=== PATIENT | male | born 1965 | race Caucasian/White ===

== ENCOUNTER 2016-11-12 11:06 | Inpatient (IN) | payer OTHER ==
[2016-11-12 12:20] VITALS: BMI 21.5
--- NOTE | 2016-11-12 15:02 | HP ---
COWS - Scale Resting Pulse: 0= [place] 80 or Below Sweatin=Flushed/Facial Moisture Restless Observation: 3= Extraneous Movement Pupil Size: 2= Moderately Dilated Bone or Joint Aches: 2= Severe Diffuse Aches Runny Nose/ Eye Tearin= Runny Nose/Eyes GI Upset > 30mins: 3= Vomiting/Diarrhea Tremor Observation: 2= Slight Tremor Visible Yawning Observation: 2= >3x During Session Anxiety or Irritability: 2=Irritable/Anxious Goose Flesh Skin: 0=Smooth Skin COWS Score: 20 Admission ROS S - HPI Chief Complaint: I NEED HELP TO STOP USING HEROIN Allergies/Adverse Reactions: Allergies Allergy/AdvReac Type Severity Reaction Status Date / Time No Known Allergies Allergy Verified 11/12/16 14:11 History of Present Illness: THIS 51 YEARS OLD MALE WITH HEROIN DEPENDENCE,WITHDRAWAL SYMPTOM,LAST DETOX IN 04/24 [place] STONE SYNCOPE NICOTINE DEPENDENCE DEPRESSION,ANXIETY,INSOMNIA LONGEST PERIOD OF SOBRIETY 9 AND HALF YEARS Exam Limitations: No Limitations - Ebola screening Have you traveled outside of the country in the last 21 days: No Have you been sick,other than usual withdrawal symptoms: No - Review of Systems Constitutional: Chills, Diaphoresis, Loss of Appetite, Malaise, Night Sweats, Changes in sleep, Weakness, Unintentional Wgt. Loss EENT: reports: Tearing, Nose Congestion Respiratory: reports: No Symptoms reported Cardiac: reports: Palpitations GI: reports: Diarrhea, Nausea, Poor Appetite, Vomiting, Abdominal cramping : reports: No Symptoms Reported Musculoskeletal: reports: Back Pain, Joint Pain, Muscle Pain, Joint Stiffness Integumentary: reports: Dryness Neuro: reports: Headache, Tremors Endocrine: reports: No Symptoms Reported Hematology: reports: No Symptoms Reported Psychiatric: reports: Mood/Affect Appropiate, Orientated x3, Anxious, Depressed Patient History - Patient Medical History Hx Anemia: No Hx Asthma: No Hx Chronic Obstructive Pulmonary Disease (COPD): No Hx Cancer: No Hx Cardiac Disorders: No Hx Hypertension: No Hx Hypercholesterolemia: No Hx Pacemaker: No HX Cerebrovascular Accident: No Hx Seizures: No Hx Diabetes: No Hx Gastrointestinal Disorders: No Hx Liver Disease: No Hx Genitourinary Disorders: No Hx Sexually Transmitted Disorders: No Hx Renal Disease (ESRD): No Hx Thyroid Disease: No Hx Human Immunodeficiency Virus (HIV): No (LAST 04/24 NEGATIVE) Hx Hepatitis C: No Hx Depression: Yes (ANXIETY) Hx Suicide Attempt: No Hx Bipolar Disorder: No Hx Schizophrenia: No Other Medical History: NO SUICIDAL,NO HOMICIDAL - Patient Surgical History Past Surgical History: No Hx Neurologic Surgery: No Hx Cataract Extraction: No Hx Cardiac Surgery: No Hx Lung Surgery: No Hx Breast Surgery: No Hx Breast Biopsy: No Hx Abdominal Surgery: No Hx Appendectomy: No Hx Cholecystectomy: No Hx Genitourinary Surgery: No Hx Section: No Hx Orthopedic Surgery: No Anesthesia Reaction: No - PPD History Previous Implant?: Yes Documented Results: Negative w/o proof Implanted On Prior R Admission?: No PPD to be Administered?: Yes - Smoking Cessation Smoking history: Current every day smoker Have you smoked in the past 12 months: Yes Aproximately how many cigarettes per day: 2 Hx Chewing Tobacco Use: No Initiated information on smoking cessation: Yes 'Breaking Loose' booklet given: 11/12/16 - Substance & Tx. History Hx Alcohol Use: No Hx Substance Use: Yes Substance Use Type: Heroin Hx Substance Use Treatment: Yes ([facility] HUI 05/24) - Substances Abused Heroin Route: Injection Frequency: Daily Amount used: 2-3 bags Age of first use: 28 Date of Last Use: 11/12/16 Family Disease History - Family Disease History Family History: Denies Admission Physical Exam S - Vital Signs Vital Signs: Vital Signs - 24 hr 11/12/16 12:17 Temperature 97 F L Pulse Rate 56 L Respiratory 20 Rate Blood Pressure 104/62 - Physical General Appearance: Yes: Moderate Distress, Tremorous, Irritable, Sweating, Anxious HEENTM: Yes: Normal ENT Inspection, RICARDO, Pharynx Normal Respiratory: Yes: Lungs Clear Neck: Yes: Supple, Trachea in good position Breast: Yes: Breast Exam Deferred Cardiology: Yes: Within Normal Limits, Regular Rhythm, Regular Rate, S1, S2 Abdominal: Yes: Within Normal Limits, Normal Bowel Sounds, Non Tender, Flat, Soft Genitourinary: Yes: Within Normal Limits Back: Yes: Within Normal Limits, Normal Inspection, Muscle Spasm Musculoskeletal: Yes: full range of Motion, Back pain, Joint Stiffness, Muscle Pain Extremities: Yes: Normal Inspection, Normal Range of Motion, Tremors Neurological: Yes: custom clothier II-XII NML intact, Fully Oriented, Alert, Motor Strength 5/5 Integumentary: Yes: Dry, Track Reddy Lymphatic: Yes: Within Normal Limits - Diagnostic (1) Opioid dependence with withdrawal Current Visit: Yes Status: Acute (2) Anxiety and depression Current Visit: Yes Status: Acute (3) Insomnia Current Visit: Yes Status: Acute (4) Nicotine dependence Current Visit: Yes Status: Acute (5) Weight loss Current Visit: Yes Status: Acute Cleared for Admission S - Detox or Rehab [facility] Level of Care: Medically Managed Detox Regimen/Protocol: Methadone S Breath Alcohol Content Breath Alcohol Content: 0 Urine Drug Screen - Results Drug Screen Negative: No Urine Drug Screen Results: OPI-Opiates
[2016-11-12] MEDS ORDERED: ACETAMINOPHEN 325 MG TABLET (FP) PO PRN (15:10)
[2016-11-12] MEDS ORDERED: guaiFENesin/D-METHORPHAN HB 10 ML UNIT-DOSE CUPS PO PRN (15:10)
[2016-11-12] MEDS ORDERED: MAG HYDROX/AL HYDROX/SIMETH 30 ML UNIT-DOSE CUP PO PRN (15:10)
[2016-11-12] MEDS ORDERED: MAGNESIUM HYDROX 2400MG/30ML ORAL SUSPENSION 30 ML CUP PO PRN (15:10)
[2016-11-12] MEDS ORDERED: P-EPHED 60MG/TRIPROLIDI 2.5MG TABLET PO PRN (15:10)
[2016-11-12] MEDS ORDERED: IBUPROFEN 400 MG TABLET (FP) PO PRN (15:10)
[2016-11-12] MEDS ORDERED: LOPERAMIDE HCL 2 MG CAPSULE PO PRN (15:10)
[2016-11-12] MEDS ORDERED: MENTHOL/PHENOL 1 EACH UD MM PRN (15:10)
[2016-11-12] MEDS ORDERED: MAGNESIUM CITRATE 300 ML BOTTLE PO PRN (15:10)
[2016-11-12] MEDS ORDERED: hydrOXYzine PAMOATE 50 MG CAPSULE (FP) PO PRN (15:10)
[2016-11-12] MEDS ORDERED: METHADONE HCL 10 MG TABLET (FOR DETOX USE ONLY) PO ONE ×2 (15:44→23:00)
[2016-11-12] MEDS: diazePAM 5 MG TABLET PO PRN ×2 (15:53→22:31)
[2016-11-12 21:32] LABS: URINE APPEARANCE CLEAR; URINE BILIRUBIN NEGATIVE (NEGATIVE); URINE BLOOD NEGATIVE (NEGATIVE); URINE COLOR YELLOW; URINE GLUCOSE (UA) NEGATIVE (NEGATIVE); URINE KETONE NEGATIVE (NEGATIVE); URINE LEUK ESTERASE NEGATIVE (NEGATIVE); URINE NITRITE NEGATIVE (NEGATIVE); URINE PROTEIN NEGATIVE (NEGATIVE); URINE UROBILINOGEN NEGATIVE E.U./dl (0.2-1.0)
[2016-11-12] MEDS: THIAMINE HCL 100 MG TABLET (FP) PO SCH (22:31)
[2016-11-12] MEDS: diphenhydrAMINE HCL 50 MG CAPSULE PO PRN (22:31)
[2016-11-12] MEDS: cloNIDine HCL 0.1 MG TABLET PO SCH (22:32)
--- NOTE | 2016-11-13 09:09 | CONSULT ---
[facility] Psychiatric Consult - Data Date of interview: 11/13/16 Admission source: [facility] Identifying data: Readmission to [facility] for this 51 y/o male seeking detox treatment for heroin dependence.Patient is single,a father of one, domiciled (transitional housing program),unemployed and supported on Public Assistance. Substance Abuse History: - Smoking Cessation. Smoking history: Current every day smoker. Have you smoked in the past 12 months: Yes. Aproximately how many cigarettes per day: 2. Hx Chewing Tobacco Use: No. Initiated information on smoking cessation: Yes. 'Breaking Loose' booklet given: 11/12/16. - Substance & Tx. History. Hx Alcohol Use: No. Hx Substance Use: Yes. Substance Use Type : Heroin. Hx Substance Use Treatment: Yes (LASHONDA HUI 05/24). - Substances Abused. Heroin. Route: Injection. Frequency: Daily. Amount used: 2-3 bags. Age of first use: 28. Date of Last Use: 11/12/16. Confirmed by patient. Medical History: Patient currently endorses good general health. Psychiatric History: Patient denies history of psychiatric hospitalizations.No history of psychiatric treatment despite a reported history of suicide attempt ( 2017) via overdose with fentanyl. Physical/Sexual Abuse/Trauma History: Patient denies. Additional Comment: Urine Drug Screen Results: OPI-Opiates.Noted. Mental Status Exam - Mental Status Exam Alert and Oriented to: Time, Place, Person Cognitive Function: Good Patient Appearance: Well Groomed Mood: Hopeful, Euthymic Affect: Appropriate, Normal Range Patient Behavior: Fatigued, Appropriate, Cooperative Speech Pattern: Clear Voice Loudness: Normal Thought Process: Goal Oriented Thought Disorder: Not Present Hallucinations: Denies Suicidal Ideation: Denies Homicidal Ideation: Denies Insight/Judgement: Poor Sleep: Poorly, Difficulty falling asleep Appetite: Good Muscle strength/Tone: Normal Gait/Station: Normal Psychiatric Findings - Problem List ([place] 1, 2,3) (1) Nicotine dependence Current Visit: Yes Status: Acute (2) Opioid dependence with withdrawal Current Visit: Yes Status: Acute (3) Substance induced mood disorder Current Visit: Yes Status: Acute - Initial Treatment Plan Initial Treatment Plan: Psychoeducation.Detoxification.Ambien 10 mg po hs prn.Patient made aware of risk for parasomnias.He agrees with this careplan.Observation.
--- NOTE | 2016-11-13 09:20 | EKG ---
Test Reason : Blood Pressure : / mmHG Vent. Rate : 047 BPM Atrial Rate : 047 BPM P-R Int : 132 ms QRS Dur : 092 ms QT Int : 438 ms P-R-T Axes : 073 077 058 degrees QTc Int : 387 ms SINUS BRADYCARDIA POSSIBLE LEFT ATRIAL ENLARGEMENT VOLTAGE CRITERIA FOR LEFT VENTRICULAR HYPERTROPHY peaked T waves are noted V3, V4, V5 CLINICAL CORRELATION IS RECOMMENDED NO PREVIOUS ECGS AVAILABLE Confirmed by SAMANTHA AVILA MD ([id number]) on 11/13/2016 9:20:37 AM Referred By: Confirmed By:SAMANTHA AVILA MD
[2016-11-13] MEDS ORDERED: METHADONE HCL 10 MG TABLET (FOR DETOX USE ONLY) PO ONE (10:00)
[2016-11-13 10:02] LABS: MCH 30.3 pg (25.7-33.7); MCHC 34.1 g/dl (32.0-35.9); MEAN CELL VOLUME 88.9 fl (80-96); MEAN PLT VOLUME 11.5 fl (7.5-11.1); PLATELET COUNT 135 K/MM3 (134-434); RDW 13.7 % (11.9-15.9); WHITE BLOOD COUNT 5.3 K/mm3 (4.0-10.0)
[2016-11-13 10:24] LABS: ALBUMIN 4.4 g/dl (3.4-5.0); ALK PHOS 73 U/L (45-117); ANION GAP 5 (8-16); BILIRUBIN,TOTAL 0.9 mg/dL (0.2-1.0); CALCIUM 9.4 mg/dL (8.5-10.1); CO2 37 mmol/L (21-32); COCKROFT - GAULT 75.59; CREATININE 1.1 mg/dL (0.7-1.3); GLUCOSE,RANDOM 102 mg/dL (74-106); SGOT/AST 16 U/L (15-37); SGPT/ALT 18 U/L (12-78); TOT PROT 7.4 g/dl (6.4-8.2)
[2016-11-13] MEDS: PRENATAL VITAMINS W/ FOLIC ACID TABLET (FP) PO SCH (10:31)
[2016-11-13] MEDS: cloNIDine HCL 0.1 MG TABLET PO SCH (10:31)
[2016-11-13] MEDS: diazePAM 5 MG TABLET PO PRN ×2 (10:32→22:10)
[2016-11-13] MEDS: CYCLOBENZAPRINE HCL 10 MG TABLET (FP) PO PRN ×2 (10:32→22:10)
--- NOTE | 2016-11-13 11:08 | PN ---
BHS COWS - Scale Resting Pulse: 0= [place] 80 or Below Sweatin= Chills/Flushing Restless Observation: 3= Extraneous Movement Pupil Size: 2= Moderately Dilated Bone or Joint Aches: 4=Acute Joint/Muscle Pain Runny Nose/ Eye Tearin= Nasal Congestion GI Upset > 30mins: 1= Stomach Cramp Tremor Observation of Outstretched Hands: 1= Tremor [place], Not Seen Yawning Observation: 2= >3x During Session Anxiety or Irritability: 2=Irritable/Anxious Goose Flesh Skin: 0=Smooth Skin COWS Score: 17 BHS Progress Note (SOAP) Subjective: ANXIETY,IRRITABILITY,SWEATS. Objective: 11/13/16 11:07 Vital Signs Temperature 97.7 F 11/13/16 10:40 Pulse Rate 68 11/13/16 10:40 Respiratory Rate 18 11/13/16 10:40 Blood Pressure 94/61 11/13/16 10:40 O2 Sat by Pulse Oximetry (%) Laboratory Last Values WBC 5.3 K/mm3 (4.0-10.0) 11/13/16 06:00 RBC 4.68 M/mm3 (4.00-5.60) 11/13/16 06:00 Hgb 14.2 GM/dL (11.7-16.9) 11/13/16 06:00 Hct 41.7 % (35.4-49) 11/13/16 06:00 MCV 88.9 fl (80-96) 11/13/16 06:00 MCHC 34.1 g/dl (32.0-35.9) 11/13/16 06:00 RDW 13.7 % (11.9-15.9) 11/13/16 06:00 Plt Count 135 K/MM3 (134-434) 11/13/16 06:00 MPV 11.5 fl (7.5-11.1) H 11/13/16 06:00 Sodium 138 mmol/L (136-145) 11/13/16 06:00 Potassium 4.8 mmol/L (3.5-5.1) 11/13/16 06:00 Chloride 96 mmol/L (98-107) L 11/13/16 06:00 Carbon Dioxide 37 mmol/L (21-32) H 11/13/16 06:00 Anion Gap 5 (8-16) L 11/13/16 06:00 BUN 16 mg/dL (7-18) 11/13/16 06:00 Creatinine 1.1 mg/dL (0.7-1.3) 11/13/16 06:00 Creat Clearance w eGFR > 60 (>60) 11/13/16 06:00 Random Glucose 102 mg/dL (74-106) 11/13/16 06:00 Calcium 9.4 mg/dL (8.5-10.1) 11/13/16 06:00 Total Bilirubin 0.9 mg/dL (0.2-1.0) 11/13/16 06:00 AST 16 U/L (15-37) 11/13/16 06:00 ALT 18 U/L (12-78) 11/13/16 06:00 Alkaline Phosphatase 73 U/L (45-117) 11/13/16 06:00 Total Protein 7.4 g/dl (6.4-8.2) 11/13/16 06:00 Albumin 4.4 g/dl (3.4-5.0) 11/13/16 06:00 Urine Color Yellow 11/12/16 16:00 Urine Appearance Clear 11/12/16 16:00 Urine pH 6.0 (5.0-8.0) 11/12/16 16:00 Ur Specific [place] 1.025 (1.001-1.035) 11/12/16 16:00 Urine Protein Negative (NEGATIVE) 11/12/16 16:00 Urine Glucose (UA) Negative (NEGATIVE) 11/12/16 16:00 Urine Ketones Negative (NEGATIVE) 11/12/16 16:00 Urine Blood Negative (NEGATIVE) 11/12/16 16:00 Urine Nitrite Negative (NEGATIVE) 11/12/16 16:00 Urine Bilirubin Negative (NEGATIVE) 11/12/16 16:00 Urine Urobilinogen Negative E.U./dl (0.2-1.0) 11/12/16 16:00 Ur Leukocyte Esterase Negative (NEGATIVE) 11/12/16 16:00 Assessment: 11/13/16 11:07 WITHDRAWAL SX Plan: CONTINUE DETOX INCREASE PO FLUIDS
[2016-11-13] MEDS ORDERED: cloNIDine HCL 0.1 MG TABLET PO PRN (11:10)
[2016-11-13] MEDS: diphenhydrAMINE HCL 50 MG CAPSULE PO PRN (22:10)
[2016-11-13] MEDS: THIAMINE HCL 100 MG TABLET (FP) PO SCH (22:13)
[2016-11-14] MEDS: diazePAM 5 MG TABLET PO PRN ×3 (05:31→22:27)
[2016-11-14] MEDS ORDERED: METHADONE HCL 5 MG TABLET (FOR DETOX USE ONLY) PO ONE (10:00)
[2016-11-14] MEDS: PRENATAL VITAMINS W/ FOLIC ACID TABLET (FP) PO SCH (10:13)
--- NOTE | 2016-11-14 14:27 | PN ---
BHS COWS - Scale Resting Pulse: 0= [place] 80 or Below Sweatin=Flushed/Facial Moisture Restless Observation: 1= Difficult to Sit Still Pupil Size: 0= Normal to Room Light Bone or Joint Aches: 1= Mild Discomfort Runny Nose/ Eye Tearin= Runny Nose/Eyes GI Upset > 30mins: 2= Nausea/Diarrhea Tremor Observation of Outstretched Hands: 2= Slight Tremor Visible Yawning Observation: 1= 1-2x During Session Anxiety or Irritability: 2=Irritable/Anxious Goose Flesh Skin: 0=Smooth Skin COWS Score: 13 BHS Progress Note (SOAP) Subjective: Anxiety,tremors,sweating,interrupted sleep,restless. Objective: 11/14/16 14:26 Vital Signs - 8 hr 11/14/16 11/14/16 11/14/16 06:30 09:42 13:57 Temperature 96.4 F L 95.6 F L 95.8 F L Pulse Rate 54 L 70 73 Respiratory 18 18 18 Rate Blood Pressure 98/62 94/62 93/60 Laboratory Tests 11/12/16 11/13/16 11/13/16 16:00 06:00 06:00 WBC 5.3 RBC 4.68 Hgb 14.2 Hct 41.7 MCV 88.9 MCHC 34.1 RDW 13.7 Plt Count 135 MPV 11.5 H Sodium 138 Potassium 4.8 Chloride 96 L Carbon Dioxide 37 H Anion Gap 5 L BUN 16 Creatinine 1.1 Creat Clearance w eGFR > 60 Random Glucose 102 Calcium 9.4 Total Bilirubin 0.9 AST 16 ALT 18 Alkaline Phosphatase 73 Total Protein 7.4 Albumin 4.4 Urine Color Yellow Urine Appearance Clear Urine pH 6.0 Ur Specific [place] 1.025 Urine Protein Negative Urine Glucose (UA) Negative Urine Ketones Negative Urine Blood Negative Urine Nitrite Negative Urine Bilirubin Negative Urine Urobilinogen Negative Ur Leukocyte Esterase Negative RPR Titer 11/13/16 06:00 WBC RBC Hgb Hct MCV MCHC RDW Plt Count MPV Sodium Potassium Chloride Carbon Dioxide Anion Gap BUN Creatinine Creat Clearance w eGFR Random Glucose Calcium Total Bilirubin AST ALT Alkaline Phosphatase Total Protein Albumin Urine Color Urine Appearance Urine pH Ur Specific [place] Urine Protein Urine Glucose (UA) Urine Ketones Urine Blood Urine Nitrite Urine Bilirubin Urine Urobilinogen Ur Leukocyte Esterase RPR Titer Nonreactive labs noted Assessment: 11/14/16 14:26 Withdrawal sx. Plan: Continue detox
[2016-11-14] MEDS: THIAMINE HCL 100 MG TABLET (FP) PO SCH (22:27)
[2016-11-14] MEDS: CYCLOBENZAPRINE HCL 10 MG TABLET (FP) PO PRN (22:27)
[2016-11-14] MEDS: ZOLPIDEM TARTRATE 10 MG TABLET (PARK CARE ONLY) PO PRN (22:28)
[2016-11-15] MEDS: diazePAM 5 MG TABLET PO PRN ×2 (05:36→10:16)
[2016-11-15] MEDS ORDERED: METHADONE HCL 5 MG TABLET (FOR DETOX USE ONLY) PO ONE (10:00)
[2016-11-15] MEDS: PRENATAL VITAMINS W/ FOLIC ACID TABLET (FP) PO SCH (10:16)
--- NOTE | 2016-11-15 13:52 | PN ---
BHS Progress Note (SOAP) Subjective: Sweating,interrupted sleep,restless Objective: 11/15/16 13:51 Vital Signs - 8 hr 11/15/16 11/15/16 11/15/16 06:32 09:28 13:39 Temperature 97.4 F L 96.4 F L 97.1 F L Pulse Rate 71 80 99 H Respiratory 18 18 18 Rate Blood Pressure 101/71 98/64 92/64 Laboratory Tests 11/12/16 11/13/16 11/13/16 16:00 06:00 06:00 WBC 5.3 RBC 4.68 Hgb 14.2 Hct 41.7 MCV 88.9 MCHC 34.1 RDW 13.7 Plt Count 135 MPV 11.5 H Sodium 138 Potassium 4.8 Chloride 96 L Carbon Dioxide 37 H Anion Gap 5 L BUN 16 Creatinine 1.1 Creat Clearance w eGFR > 60 Random Glucose 102 Calcium 9.4 Total Bilirubin 0.9 AST 16 ALT 18 Alkaline Phosphatase 73 Total Protein 7.4 Albumin 4.4 Urine Color Yellow Urine Appearance Clear Urine pH 6.0 Ur Specific [place] 1.025 Urine Protein Negative Urine Glucose (UA) Negative Urine Ketones Negative Urine Blood Negative Urine Nitrite Negative Urine Bilirubin Negative Urine Urobilinogen Negative Ur Leukocyte Esterase Negative RPR Titer 11/13/16 06:00 WBC RBC Hgb Hct MCV MCHC RDW Plt Count MPV Sodium Potassium Chloride Carbon Dioxide Anion Gap BUN Creatinine Creat Clearance w eGFR Random Glucose Calcium Total Bilirubin AST ALT Alkaline Phosphatase Total Protein Albumin Urine Color Urine Appearance Urine pH Ur Specific [place] Urine Protein Urine Glucose (UA) Urine Ketones Urine Blood Urine Nitrite Urine Bilirubin Urine Urobilinogen Ur Leukocyte Esterase RPR Titer Nonreactive labs noted Assessment: 11/15/16 13:52 Withdrawal sx. Plan: Continue detox
[2016-11-15] MEDS: THIAMINE HCL 100 MG TABLET (FP) PO SCH (22:25)
[2016-11-15] MEDS: CYCLOBENZAPRINE HCL 10 MG TABLET (FP) PO PRN (22:25)
[2016-11-15] MEDS: ZOLPIDEM TARTRATE 10 MG TABLET (PARK CARE ONLY) PO PRN (22:25)
[2016-11-16] MEDS ORDERED: METHADONE HCL 10 MG TABLET (FOR DETOX USE ONLY) PO ONE (10:00)
[2016-11-16] MEDS: PRENATAL VITAMINS W/ FOLIC ACID TABLET (FP) PO SCH (10:38)
--- NOTE | 2016-11-16 13:24 | PN ---
BHS Progress Note (SOAP) Subjective: Sweating,interrupted sleep,restless Objective: 11/16/16 13:23 Vital Signs - 8 hr 11/16/16 11/16/16 06:45 09:52 Temperature 97.6 F 98.4 F Pulse Rate 78 87 Respiratory 18 20 Rate Blood Pressure 93/68 101/70 Laboratory Last Values WBC 5.3 K/mm3 (4.0-10.0) 11/13/16 06:00 RBC 4.68 M/mm3 (4.00-5.60) 11/13/16 06:00 Hgb 14.2 GM/dL (11.7-16.9) 11/13/16 06:00 Hct 41.7 % (35.4-49) 11/13/16 06:00 MCV 88.9 fl (80-96) 11/13/16 06:00 MCHC 34.1 g/dl (32.0-35.9) 11/13/16 06:00 RDW 13.7 % (11.9-15.9) 11/13/16 06:00 Plt Count 135 K/MM3 (134-434) 11/13/16 06:00 MPV 11.5 fl (7.5-11.1) H 11/13/16 06:00 Sodium 138 mmol/L (136-145) 11/13/16 06:00 Potassium 4.8 mmol/L (3.5-5.1) 11/13/16 06:00 Chloride 96 mmol/L (98-107) L 11/13/16 06:00 Carbon Dioxide 37 mmol/L (21-32) H 11/13/16 06:00 Anion Gap 5 (8-16) L 11/13/16 06:00 BUN 16 mg/dL (7-18) 11/13/16 06:00 Creatinine 1.1 mg/dL (0.7-1.3) 11/13/16 06:00 Creat Clearance w eGFR > 60 (>60) 11/13/16 06:00 Random Glucose 102 mg/dL (74-106) 11/13/16 06:00 Calcium 9.4 mg/dL (8.5-10.1) 11/13/16 06:00 Total Bilirubin 0.9 mg/dL (0.2-1.0) 11/13/16 06:00 AST 16 U/L (15-37) 11/13/16 06:00 ALT 18 U/L (12-78) 11/13/16 06:00 Alkaline Phosphatase 73 U/L (45-117) 11/13/16 06:00 Total Protein 7.4 g/dl (6.4-8.2) 11/13/16 06:00 Albumin 4.4 g/dl (3.4-5.0) 11/13/16 06:00 Urine Color Yellow 11/12/16 16:00 Urine Appearance Clear 11/12/16 16:00 Urine pH 6.0 (5.0-8.0) 11/12/16 16:00 Ur Specific [place] 1.025 (1.001-1.035) 11/12/16 16:00 Urine Protein Negative (NEGATIVE) 11/12/16 16:00 Urine Glucose (UA) Negative (NEGATIVE) 11/12/16 16:00 Urine Ketones Negative (NEGATIVE) 11/12/16 16:00 Urine Blood Negative (NEGATIVE) 11/12/16 16:00 Urine Nitrite Negative (NEGATIVE) 11/12/16 16:00 Urine Bilirubin Negative (NEGATIVE) 11/12/16 16:00 Urine Urobilinogen Negative E.U./dl (0.2-1.0) 11/12/16 16:00 Ur Leukocyte Esterase Negative (NEGATIVE) 11/12/16 16:00 RPR Titer Nonreactive (NONREACTIVE) 11/13/16 06:00 labs noted Assessment: 11/16/16 13:23 Withdrawal sx. Plan: Continue detox
[2016-11-16] MEDS: ZOLPIDEM TARTRATE 10 MG TABLET (PARK CARE ONLY) PO PRN (21:50)
[2016-11-16] MEDS: THIAMINE HCL 100 MG TABLET (FP) PO SCH (22:21)
[2016-11-17] MEDS ORDERED: METHADONE HCL 5 MG TABLET (FOR DETOX USE ONLY) PO ONE (06:00)
[2016-11-17 09:54] VITALS: PULSE 87; TEMP 97.8
[2016-11-17 09:56] VITALS: BP 109/74
--- NOTE | 2016-11-17 10:01 | DS ---
[facility] Detox Discharge Summary Admission Date: 11/12/16 Discharge Date: 11/17/16 - History Present History: Opioid Dependence Pertinent Past History: insomnia - Physical Exam Results Vital Signs: Vital Signs Temperature 97.8 F 11/17/16 09:53 Pulse Rate 87 11/17/16 09:53 Respiratory Rate 18 11/17/16 09:53 Blood Pressure 109/74 11/17/16 09:54 O2 Sat by Pulse Oximetry (%) Pertinent Admission Physical Exam Findings: Withdrawal sx. Laboratory Last Values WBC 5.3 K/mm3 (4.0-10.0) 11/13/16 06:00 RBC 4.68 M/mm3 (4.00-5.60) 11/13/16 06:00 Hgb 14.2 GM/dL (11.7-16.9) 11/13/16 06:00 Hct 41.7 % (35.4-49) 11/13/16 06:00 MCV 88.9 fl (80-96) 11/13/16 06:00 MCHC 34.1 g/dl (32.0-35.9) 11/13/16 06:00 RDW 13.7 % (11.9-15.9) 11/13/16 06:00 Plt Count 135 K/MM3 (134-434) 11/13/16 06:00 MPV 11.5 fl (7.5-11.1) H 11/13/16 06:00 Sodium 138 mmol/L (136-145) 11/13/16 06:00 Potassium 4.8 mmol/L (3.5-5.1) 11/13/16 06:00 Chloride 96 mmol/L (98-107) L 11/13/16 06:00 Carbon Dioxide 37 mmol/L (21-32) H 11/13/16 06:00 Anion Gap 5 (8-16) L 11/13/16 06:00 BUN 16 mg/dL (7-18) 11/13/16 06:00 Creatinine 1.1 mg/dL (0.7-1.3) 11/13/16 06:00 Creat Clearance w eGFR > 60 (>60) 11/13/16 06:00 Random Glucose 102 mg/dL (74-106) 11/13/16 06:00 Calcium 9.4 mg/dL (8.5-10.1) 11/13/16 06:00 Total Bilirubin 0.9 mg/dL (0.2-1.0) 11/13/16 06:00 AST 16 U/L (15-37) 11/13/16 06:00 ALT 18 U/L (12-78) 11/13/16 06:00 Alkaline Phosphatase 73 U/L (45-117) 11/13/16 06:00 Total Protein 7.4 g/dl (6.4-8.2) 11/13/16 06:00 Albumin 4.4 g/dl (3.4-5.0) 11/13/16 06:00 Urine Color Yellow 11/12/16 16:00 Urine Appearance Clear 11/12/16 16:00 Urine pH 6.0 (5.0-8.0) 11/12/16 16:00 Ur Specific [place] 1.025 (1.001-1.035) 11/12/16 16:00 Urine Protein Negative (NEGATIVE) 11/12/16 16:00 Urine Glucose (UA) Negative (NEGATIVE) 11/12/16 16:00 Urine Ketones Negative (NEGATIVE) 11/12/16 16:00 Urine Blood Negative (NEGATIVE) 11/12/16 16:00 Urine Nitrite Negative (NEGATIVE) 11/12/16 16:00 Urine Bilirubin Negative (NEGATIVE) 11/12/16 16:00 Urine Urobilinogen Negative E.U./dl (0.2-1.0) 11/12/16 16:00 Ur Leukocyte Esterase Negative (NEGATIVE) 11/12/16 16:00 RPR Titer Nonreactive (NONREACTIVE) 11/13/16 06:00 labs noted - Treatment Hospital Course: Detox Protocol Followed, Detoxed Safely, Responded well, Discharged Condition Good, Rehab Referral Accepted Patient has Accepted a Rehab Referral to: [facility] rehab - Medication Discharge Medications: Ambulatory Orders NK [No Known Home Medication] 11/12/16 - Diagnosis (1) Insomnia Current Visit: Yes Status: Acute (2) Nicotine dependence Current Visit: Yes Status: Acute Qualifiers: Nicotine product type: cigarettes Substance use status: uncomplicated Qualified Code(s): F17.210 - Nicotine dependence, cigarettes, uncomplicated (3) Opioid dependence with withdrawal Current Visit: Yes Status: Acute (4) Substance induced mood disorder Current Visit: Yes Status: Acute - AMA Did Patient Leave Against Medical Advice: No
== END 2016-11-17 10:00 | disposition home or self-care (01) | DRG 773 ==
LOC: YASAS 11:06 → Y3N 14:46
PROVIDERS: ADMIT Internal Medicine; ATTEND Internal Medicine
PROC: HZ2ZZZZ Detoxification Services for Substance Abuse Treatment (ICD-10-PCS; principal; 2016-11-17)
DX: F11.23 Opioid dependence with withdrawal (principal); F17.210 Nicotine dependence, cigarettes, uncomplicated; F41.8 Other specified anxiety disorders; F19.24 Other psychoactive substance dependence with psychoactive substance-induced mood disorder; G47.00 Insomnia, unspecified; R63.4 Abnormal weight loss; Z68.21 Body mass index [BMI] 21.0-21.9, adult
CPT/HCPCS: 36415; 80053; 81003; 85027; 86593; 93005; 93010